=== PATIENT | male | born 1945 | race Caucasian/White ===

== ENCOUNTER → 2018-07-06 | Outpatient (CLI) | payer MEDICARE, BC ==
[~2018-07-06] MED LIST: ASPI-515 PO; BUPR300T4 PO; IPRA4AER INH; LATA2.5D3 EACHEYE; OMEP-110 PO; SIMV80TA18 PO; TIOT18CA INH; VALS160T3 PO
== END | disposition home or self-care (01) ==
LOC: SUSANVILLE 08:00
PROVIDERS: ATTEND Internal Medicine Cardiovascular Disease
DX: I08.1 Rheumatic disorders of both mitral and tricuspid valves (principal); I10 Essential (primary) hypertension; J44.9 Chronic obstructive pulmonary disease, unspecified; E78.5 Hyperlipidemia, unspecified
CPT/HCPCS: 93306

== ENCOUNTER → 2019-10-13 | Outpatient (CLI) | payer MEDICARE, BC ==
[~2019-10-13] MED LIST changes: -BUPR300T4 PO; +BUPR300T94 PO
[2019-10-13 08:33] LABS: ALANINE AMINOTRANSFERASE 35 U/L (12-78); ANION GAP 3 mmol/L (5-15); CALCIUM 8.5 mg/dL (8.5-10.1); CHLORIDE 112 mmol/L (98-107); CHOLESTEROL, TOTAL 202 mg/dL (140-239)
[2019-10-13 08:35] LABS: ALKALINE PHOSPHATASE 104 U/L (45-117); BILIRUBIN,TOTAL 0.3 mg/dL (0.2-1.0); CHOL/HDL RATIO 1.8; HDL CHOL % 55 % (26-37); HDL CHOLESTEROL (DIRECT) 111 mg/dL (40-60); LDL CHOLESTEROL,CALCULATED 54 mg/dL (54-169); LDL/HDL RATIO 0.5 (0.5-3.0); TRIGLYCERIDES 186 mg/dL (50-200); VLDL CHOLESTEROL 37 mg/dL (0-25)
== END | disposition home or self-care (01) ==
LOC: CVU 07:21
PROVIDERS: ATTEND Internal Medicine Cardiovascular Disease
DX: I35.8 Other nonrheumatic aortic valve disorders (principal); I10 Essential (primary) hypertension; I48.91 Unspecified atrial fibrillation; R06.02 Shortness of breath; E78.5 Hyperlipidemia, unspecified
CPT/HCPCS: 36415; 80053; 80061; 93306

== ENCOUNTER 2020-10-31 21:41 | Inpatient (IN) | payer MEDICARE, BC ==
[~2020-10-31] VITALS: Ht 175.3 cm; Wt 71.5 kg
[~2020-10-31 21:41] MED LIST changes: -ASPI-515 PO; +ASPI-963 PO; -LATA2.5D3 EACHEYE; +LATA2.5D4 EACHEYE
[2020-11-01 00:09] VITALS: BP 126/74
[2020-11-01] MEDS ORDERED: VANCOMYCIN 1,200 MG in SODIUM CHLORIDE 0.9% 250 ML IVPB SCH (03:16)
[2020-11-01] MEDS ORDERED: ONDANSETRON 2MG/ML, 2ML IVPush PRN (03:30)
[2020-11-01] MEDS ORDERED: hydrALAzine 20 MG/ML, 1ML IVPush PRN (03:30)
[2020-11-01] MEDS ORDERED: morphine SULFATE 10 MG/ML, 1ML IVPush PRN (03:30)
[2020-11-01] MEDS: GUAIFENESIN/DM 200-20MG, 10ML UDC PO PRN ×2 (03:32→16:13)
[2020-11-01] MEDS: HEPARIN 5,000 UNITS/ML, 1ML SQ SCH ×3 (03:33→21:11)
[2020-11-01] MEDS ORDERED: VANCOMYCIN PER PHARMACY MC PRN (04:00)
[2020-11-01] MEDS ORDERED: PHARMACOKINETIC MONITORING MC PRN (04:00)
[2020-11-01] MEDS ORDERED: VANCOMYCIN 1,700 MG in SODIUM CHLORIDE 0.9% 250 ML IV ONE (04:00)
[2020-11-01] MEDS: CEFEPIME 1 GM in DEXTROSE 5% 50 ML IV SCH ×2 (04:14→16:14)
[2020-11-01] MEDS ORDERED: ALBUTEROL/IPRATROPIUM 2.5MG/0.5MG, 3 ML NPPB PRN (04:30)
[2020-11-01] MEDS ORDERED: ATOR20TA86 PO (05:40)
[2020-11-01] MEDS ORDERED: METO25TA91 PO (05:41)
[2020-11-01] MEDS ORDERED: APIX2.5T PO (05:41)
[2020-11-01] MEDS ORDERED: ALLO1POW PO (05:44)
[2020-11-01] MEDS: ALBUTEROL/IPRATROPIUM 2.5MG/0.5MG, 3 ML HHN SCH ×2 (06:51→19:55)
[2020-11-01 07:05] VITALS: BP 122/66
[2020-11-01 08:46] LABS: BASOPHILS % (AUTO) 0 % (0-1); EOSINOPHILS % (AUTO) 1 % (1-7); LYMPHOCYTES % (AUTO) 3 % (22-44); MEAN CORPUSCULAR HEMOGLOBIN 30.8 pg (27.5-34.5); MEAN CORPUSCULAR HGB CONC 32.9 g/dL (33.2-36.2); MONOCYTES % (AUTO) 7 % (2-9); NEUTROPHILS % (AUTO) 89 % (42-75); PLATELET COUNT 167 x10^3/uL (130-400); RED BLOOD COUNT 3.06 x10^6/uL (4.38-5.82); RED CELL DISTRIBUTION WIDTH 15.9 % (9.4-14.8)
[2020-11-01 08:52] LABS: ANION GAP 7 mmol/L (5-15); CALCIUM 8.5 mg/dL (8.5-10.1); CHLORIDE 107 mmol/L (98-107); CREATININE 1.32 mg/dL (0.7-1.3)
[2020-11-01 08:56] LABS: TROPONIN I < 0.015 ng/mL (0.000-0.045)
[2020-11-01] MEDS ORDERED: ALBUMIN HUMAN 25% 100 ML IV ONE (09:00)
[2020-11-01] MEDS ORDERED: ATORVASTATIN 20 MG TABLET PO ONE (09:30)
[2020-11-01] MEDS: OMEPRAZOLE 20 MG CAPSULE.DR PO SCH (09:57)
[2020-11-01] MEDS: METOPROLOL SUCCINATE 25 MG TAB.ER.24H PO SCH ×2 (09:57→21:11)
[2020-11-01 12:34] VITALS: BP 135/86
[2020-11-01 14:06] VITALS: BP 147/92
[2020-11-01] MEDS ORDERED: AMIODARONE 150 MG in DEXTROSE 5% 100 ML IV ONE (16:00)
[2020-11-01] MEDS: FILTER 0.22 MICRON IV PRN (16:14)
[2020-11-01] MEDS: OXYcodone/APAP 5/325MG TABLET PO PRN (16:14)
[2020-11-01] MEDS: AMIODARONE 450 MG in DEXTROSE 5% 241 ML IV PRN (16:14)
[2020-11-01 18:51] VITALS: BP 140/82
[2020-11-01] MEDS: LATANOPROST OPHTH 0.005%, 2.5ML EACHEYE SCH (21:11)
[2020-11-02 00:24] VITALS: BP 110/57
[2020-11-02] MEDS: AMIODARONE 450 MG in DEXTROSE 5% 241 ML IV PRN ×2 (01:58→19:29)
[2020-11-02] MEDS: HEPARIN 5,000 UNITS/ML, 1ML SQ SCH ×2 (03:30→11:30)
[2020-11-02] MEDS: CEFEPIME 1 GM in DEXTROSE 5% 50 ML IV SCH ×2 (04:22→15:41)
[2020-11-02 05:15] LABS: ALBUMIN 2.4 g/dL (3.4-5.0); ANION GAP 8 mmol/L (5-15); CALCIUM 8.9 mg/dL (8.5-10.1); CHLORIDE 109 mmol/L (98-107)
[2020-11-02 05:20] LABS: ALANINE AMINOTRANSFERASE 13 U/L (12-78); ALKALINE PHOSPHATASE 93 U/L (45-117); BILIRUBIN,TOTAL 0.9 mg/dL (0.2-1.0); CREATININE 1.04 mg/dL (0.7-1.3); TOTAL PROTEIN 6.3 g/dL (6.4-8.2)
[2020-11-02 06:53] VITALS: BP 148/75
[2020-11-02] MEDS: OMEPRAZOLE 20 MG CAPSULE.DR PO SCH (09:00)
[2020-11-02] MEDS: METOPROLOL SUCCINATE 25 MG TAB.ER.24H PO SCH ×2 (09:00→20:56)
[2020-11-02] MEDS ORDERED: ALBUTEROL-IPRATROPIUM MDI INH INH SCH (09:00)
[2020-11-02] MEDS ORDERED: MIDAZOLAM 1 MG/ML, 5ML ONE ×2 (11:10)
[2020-11-02] MEDS ORDERED: FENTANYL PF 100 MCG/2ML ONE (11:11)
[2020-11-02] MEDS ORDERED: LIDOCAINE 1%, 10ML ONE (11:42)
[2020-11-02] MEDS ORDERED: FLUMAZENIL 0.1 MG/1 ML, 5ML ONE (12:24)
[2020-11-02] MEDS: VANCOMYCIN 1,600 MG in SODIUM CHLORIDE 0.9% 250 ML IV SCH (13:03)
[2020-11-02 13:05] VITALS: BP 155/80
[2020-11-02] MEDS ORDERED: LIDOCAINE GEL 2%, 5ML ONE (13:55)
[2020-11-02] MEDS ORDERED: LIDOCAINE 2%, 20ML ONE (13:55)
[2020-11-02] MEDS ORDERED: BENZOCAINE 20% SPRAY 0.5ML ONE (13:55)
[2020-11-02] MEDS ORDERED: methylPREDNISolone SOD SUCC 40 MG/ML ONE (15:54)
[2020-11-02] MEDS: methylPREDNISolone SOD SUCC 40 MG/ML IV SCH (15:57)
[2020-11-02] MEDS: GUAIFENESIN/DM 200-20MG, 10ML UDC PO PRN (15:57)
[2020-11-02] MEDS: ALBUTEROL-IPRATROPIUM MDI INH INH SCH ×2 (17:23→20:56)
[2020-11-02] MEDS: OXYcodone/APAP 5/325MG TABLET PO PRN (19:39)
[2020-11-02] MEDS: LATANOPROST OPHTH 0.005%, 2.5ML EACHEYE SCH (20:56)
[2020-11-02] MEDS: MELATONIN 5 MG TABLET PO PRN (21:04)
[2020-11-03] MEDS: methylPREDNISolone SOD SUCC 40 MG/ML IV SCH ×4 (00:20→23:39)
[2020-11-03] MEDS: AMIODARONE 450 MG in DEXTROSE 5% 241 ML IV PRN ×3 (03:22→21:32)
[2020-11-03] MEDS: CEFEPIME 1 GM in DEXTROSE 5% 50 ML IV SCH ×2 (03:22→15:52)
[2020-11-03] MEDS: ALBUTEROL-IPRATROPIUM MDI INH INH SCH ×4 (06:06→20:07)
[2020-11-03 08:00] VITALS: BP 140/75
[2020-11-03 08:44] LABS: BASOPHILS % (AUTO) 0 % (0-1); EOSINOPHILS % (AUTO) 0 % (1-7); LYMPHOCYTES % (AUTO) 2 % (22-44); MEAN CORPUSCULAR HEMOGLOBIN 30.3 pg (27.5-34.5); MEAN CORPUSCULAR HGB CONC 32.5 g/dL (33.2-36.2); MEAN PLATELET VOLUME 7.4 fL (7.4-10.4); MONOCYTES % (AUTO) 5 % (2-9); NEUTROPHILS % (AUTO) 93 % (42-75); PLATELET COUNT 159 x10^3/uL (130-400); RED BLOOD COUNT 3.34 x10^6/uL (4.38-5.82); RED CELL DISTRIBUTION WIDTH 15.9 % (9.4-14.8)
[2020-11-03] MEDS: METOPROLOL SUCCINATE 25 MG TAB.ER.24H PO SCH ×2 (08:51→20:07)
[2020-11-03] MEDS: OMEPRAZOLE 20 MG CAPSULE.DR PO SCH (08:51)
[2020-11-03] MEDS: LISINOPRIL 10 MG TABLET PO SCH ×2 (08:52→20:07)
[2020-11-03] MEDS: GUAIFENESIN/DM 200-20MG, 10ML UDC PO PRN (08:52)
[2020-11-03 08:54] LABS: ALANINE AMINOTRANSFERASE 13 U/L (12-78); ALBUMIN 2.3 g/dL (3.4-5.0); ANION GAP 8 mmol/L (5-15); CALCIUM 8.9 mg/dL (8.5-10.1); CHLORIDE 110 mmol/L (98-107); CREATININE 0.87 mg/dL (0.7-1.3)
[2020-11-03 08:57] LABS: ALKALINE PHOSPHATASE 102 U/L (45-117); BILIRUBIN,TOTAL 0.6 mg/dL (0.2-1.0); TOTAL PROTEIN 6.7 g/dL (6.4-8.2)
[2020-11-03] MEDS ORDERED: APIXABAN 2.5 MG TABLET PO SCH (09:00)
[2020-11-03] MEDS: VANCOMYCIN 1,600 MG in SODIUM CHLORIDE 0.9% 250 ML IV SCH (11:33)
[2020-11-03] MEDS: APIXABAN 2.5 MG TABLET PO SCH (20:07)
[2020-11-03] MEDS: LATANOPROST OPHTH 0.005%, 2.5ML EACHEYE SCH (20:07)
[2020-11-03] MEDS: MELATONIN 5 MG TABLET PO PRN (22:06)
[2020-11-04] MEDS: CEFEPIME 1 GM in DEXTROSE 5% 50 ML IV SCH ×2 (02:41→16:10)
[2020-11-04] MEDS: FILTER 0.22 MICRON IV PRN (06:12)
[2020-11-04] MEDS: AMIODARONE 450 MG in DEXTROSE 5% 241 ML IV PRN ×3 (06:12→20:11)
[2020-11-04] MEDS: ALBUTEROL-IPRATROPIUM MDI INH INH SCH ×4 (06:13→21:52)
[2020-11-04] MEDS: methylPREDNISolone SOD SUCC 40 MG/ML IV SCH ×2 (08:55→16:10)
[2020-11-04] MEDS: OMEPRAZOLE 20 MG CAPSULE.DR PO SCH (08:56)
[2020-11-04] MEDS: METOPROLOL SUCCINATE 25 MG TAB.ER.24H PO SCH ×2 (08:56→21:53)
[2020-11-04] MEDS: LISINOPRIL 10 MG TABLET PO SCH ×2 (08:57→21:53)
[2020-11-04] MEDS: APIXABAN 2.5 MG TABLET PO SCH ×2 (08:57→21:53)
[2020-11-04] MEDS: VANCOMYCIN 1,600 MG in SODIUM CHLORIDE 0.9% 250 ML IV SCH (10:42)
[2020-11-04] MEDS: GUAIFENESIN/DM 200-20MG, 10ML UDC PO PRN (11:17)
[2020-11-04] MEDS: DRONABINOL 5 MG CAPSULE PO SCH ×2 (16:20→21:53)
[2020-11-04] MEDS ORDERED: AMIODARONE 450 MG in DEXTROSE 5% 241 ML IV PRN (19:30)
[2020-11-04] MEDS: LATANOPROST OPHTH 0.005%, 2.5ML EACHEYE SCH (21:51)
[2020-11-05] MEDS: methylPREDNISolone SOD SUCC 40 MG/ML IV SCH ×3 (00:26→20:54)
[2020-11-05] MEDS: AMIODARONE 450 MG in DEXTROSE 5% 241 ML IV PRN (00:27)
[2020-11-05] MEDS: GUAIFENESIN/DM 200-20MG, 10ML UDC PO PRN ×4 (03:57→22:11)
[2020-11-05] MEDS: CEFEPIME 1 GM in DEXTROSE 5% 50 ML IV SCH ×2 (03:57→15:33)
[2020-11-05 04:46] LABS: BASOPHILS % (AUTO) 0 % (0-1); EOSINOPHILS % (AUTO) 0 % (1-7); LYMPHOCYTES % (AUTO) 3 % (22-44); MEAN CORPUSCULAR HEMOGLOBIN 30.9 pg (27.5-34.5); MEAN CORPUSCULAR HGB CONC 33.1 g/dL (33.2-36.2); MEAN PLATELET VOLUME 7.9 fL (7.4-10.4); MONOCYTES % (AUTO) 8 % (2-9); NEUTROPHILS % (AUTO) 89 % (42-75); PLATELET COUNT 146 x10^3/uL (130-400); RED BLOOD COUNT 3.09 x10^6/uL (4.38-5.82); RED CELL DISTRIBUTION WIDTH 16.3 % (9.4-14.8)
[2020-11-05 04:54] LABS: ANION GAP 4 mmol/L (5-15); CALCIUM 8.3 mg/dL (8.5-10.1); CHLORIDE 112 mmol/L (98-107); CREATININE 1.12 mg/dL (0.7-1.3)
[2020-11-05] MEDS: ALBUTEROL-IPRATROPIUM MDI INH INH SCH ×4 (07:49→20:54)
[2020-11-05] MEDS: METOPROLOL SUCCINATE 25 MG TAB.ER.24H PO SCH ×2 (07:50→20:55)
[2020-11-05] MEDS: DRONABINOL 5 MG CAPSULE PO SCH ×2 (07:50→22:08)
[2020-11-05] MEDS: APIXABAN 2.5 MG TABLET PO SCH (07:51)
[2020-11-05] MEDS: LISINOPRIL 10 MG TABLET PO SCH ×2 (07:51→20:55)
[2020-11-05] MEDS: OMEPRAZOLE 20 MG CAPSULE.DR PO SCH (07:51)
[2020-11-05] MEDS: VANCOMYCIN 1,600 MG in SODIUM CHLORIDE 0.9% 250 ML IV SCH (10:07)
[2020-11-05] MEDS ORDERED: FENTANYL PF 100 MCG/2ML ONE (12:00)
[2020-11-05] MEDS ORDERED: MIDAZOLAM 1 MG/ML, 5ML ONE (12:00)
[2020-11-05] MEDS ORDERED: FENTANYL PF 100 MCG/2ML IVPush ONE (12:53)
[2020-11-05] MEDS ORDERED: MIDAZOLAM 1 MG/ML, 2ML IVPush ONE (12:53)
[2020-11-05] MEDS ORDERED: ALBUTEROL-IPRATROPIUM MDI INH INH PRN (13:00)
[2020-11-05] MEDS: AMIODARONE 200 MG TABLET PO SCH ×2 (14:13→20:54)
[2020-11-05 17:59] VITALS: BP 129/78
[2020-11-05] MEDS: LATANOPROST OPHTH 0.005%, 2.5ML EACHEYE SCH (20:54)
[2020-11-05] MEDS: APIXABAN 5 MG TABLET PO SCH (21:00)
[2020-11-06 03:33] VITALS: BP 149/81
[2020-11-06] MEDS: GUAIFENESIN/DM 200-20MG, 10ML UDC PO PRN ×3 (04:05→18:42)
[2020-11-06] MEDS: CEFEPIME 1 GM in DEXTROSE 5% 50 ML IV SCH ×2 (04:05→15:59)
[2020-11-06] MEDS: ALBUTEROL-IPRATROPIUM MDI INH INH SCH ×4 (05:14→20:32)
[2020-11-06 06:34] LABS: BASOPHILS % (AUTO) 0 % (0-1); EOSINOPHILS % (AUTO) 0 % (1-7); LYMPHOCYTES % (AUTO) 2 % (22-44); MEAN CORPUSCULAR HGB CONC 33.1 g/dL (33.2-36.2); MEAN PLATELET VOLUME 8.4 fL (7.4-10.4); MONOCYTES % (AUTO) 9 % (2-9); NEUTROPHILS % (AUTO) 88 % (42-75); PLATELET COUNT 154 x10^3/uL (130-400); RED BLOOD COUNT 3.07 x10^6/uL (4.38-5.82); RED CELL DISTRIBUTION WIDTH 16.5 % (9.4-14.8)
[2020-11-06 06:37] LABS: CHLORIDE 109 mmol/L (98-107)
[2020-11-06 06:54] LABS: ANION GAP 5 mmol/L (5-15); CALCIUM 8.2 mg/dL (8.5-10.1); CREATININE 1.29 mg/dL (0.7-1.3)
[2020-11-06 09:02] VITALS: BP 156/90
[2020-11-06] MEDS: DRONABINOL 5 MG CAPSULE PO SCH ×2 (09:15→20:31)
[2020-11-06] MEDS: methylPREDNISolone SOD SUCC 40 MG/ML IV SCH ×2 (09:15→20:32)
[2020-11-06] MEDS: LISINOPRIL 10 MG TABLET PO SCH ×2 (09:15→20:31)
[2020-11-06] MEDS: METOPROLOL SUCCINATE 25 MG TAB.ER.24H PO SCH ×2 (09:15→20:31)
[2020-11-06] MEDS: APIXABAN 5 MG TABLET PO SCH ×2 (09:15→20:31)
[2020-11-06] MEDS: AMIODARONE 200 MG TABLET PO SCH ×2 (09:15→20:31)
[2020-11-06] MEDS: OMEPRAZOLE 20 MG CAPSULE.DR PO SCH (09:23)
[2020-11-06 13:25] VITALS: BP 149/81
[2020-11-06 19:11] VITALS: BP 159/84
[2020-11-06] MEDS: LATANOPROST OPHTH 0.005%, 2.5ML EACHEYE SCH (20:32)
[2020-11-07] MEDS: GUAIFENESIN/DM 200-20MG, 10ML UDC PO PRN ×3 (01:27→18:45)
[2020-11-07 02:14] VITALS: BP 166/89
[2020-11-07] MEDS: CEFEPIME 1 GM in DEXTROSE 5% 50 ML IV SCH ×2 (03:18→16:02)
[2020-11-07] MEDS: ALBUTEROL-IPRATROPIUM MDI INH INH SCH ×4 (06:24→20:26)
[2020-11-07] MEDS: DRONABINOL 5 MG CAPSULE PO SCH ×2 (08:16→20:25)
[2020-11-07] MEDS: OMEPRAZOLE 20 MG CAPSULE.DR PO SCH (08:16)
[2020-11-07] MEDS: APIXABAN 5 MG TABLET PO SCH ×2 (08:17→20:25)
[2020-11-07] MEDS: AMIODARONE 200 MG TABLET PO SCH ×2 (08:18→20:26)
[2020-11-07] MEDS: METOPROLOL SUCCINATE 25 MG TAB.ER.24H PO SCH ×2 (08:19→20:25)
[2020-11-07] MEDS: LISINOPRIL 10 MG TABLET PO SCH ×2 (08:19→20:26)
[2020-11-07] MEDS: methylPREDNISolone SOD SUCC 40 MG/ML IV SCH (08:21)
[2020-11-07 14:04] VITALS: BP 142/82
[2020-11-07] MEDS ORDERED: VANCOMYCIN 1,400 MG in SODIUM CHLORIDE 0.9% 250 ML IV ONE (16:00)
[2020-11-07] MEDS: MELATONIN 5 MG TABLET PO PRN (20:26)
[2020-11-07] MEDS: LATANOPROST OPHTH 0.005%, 2.5ML EACHEYE SCH (20:26)
[2020-11-07 20:27] VITALS: BP 167/82
[2020-11-08 00:40] VITALS: BP 162/83
[2020-11-08] MEDS: CEFEPIME 1 GM in DEXTROSE 5% 50 ML IV SCH ×2 (03:30→15:18)
[2020-11-08] MEDS: ALBUTEROL-IPRATROPIUM MDI INH INH SCH ×4 (06:16→20:12)
[2020-11-08 06:59] VITALS: BP 174/84
[2020-11-08] MEDS ORDERED: POLYETHYLENE GLYCOL 17 GM PACKET NG PRN (08:30)
[2020-11-08] MEDS: SENNA/DOCUSATE TABLET PO SCH (08:34)
[2020-11-08] MEDS: METOPROLOL SUCCINATE 25 MG TAB.ER.24H PO SCH ×2 (08:35→20:13)
[2020-11-08] MEDS: AMIODARONE 200 MG TABLET PO SCH ×2 (08:35→20:12)
[2020-11-08] MEDS: OMEPRAZOLE 20 MG CAPSULE.DR PO SCH (08:36)
[2020-11-08] MEDS: APIXABAN 5 MG TABLET PO SCH ×2 (08:36→20:12)
[2020-11-08] MEDS: LISINOPRIL 10 MG TABLET PO SCH ×2 (08:36→20:12)
[2020-11-08] MEDS: DRONABINOL 5 MG CAPSULE PO SCH ×2 (08:36→20:12)
[2020-11-08] MEDS: GUAIFENESIN/DM 200-20MG, 10ML UDC PO PRN ×2 (12:16→20:13)
[2020-11-08] MEDS: OXYcodone/APAP 5/325MG TABLET PO PRN (12:16)
[2020-11-08 13:29] VITALS: BP 135/61
[2020-11-08 19:14] VITALS: BP 160/83
[2020-11-08] MEDS: MELATONIN 5 MG TABLET PO PRN (20:12)
[2020-11-08] MEDS: LATANOPROST OPHTH 0.005%, 2.5ML EACHEYE SCH (20:12)
[2020-11-09 00:33] VITALS: BP 159/78
[2020-11-09] MEDS: CEFEPIME 1 GM in DEXTROSE 5% 50 ML IV SCH ×2 (03:40→17:21)
[2020-11-09] MEDS: ALBUTEROL-IPRATROPIUM MDI INH INH SCH ×4 (05:16→20:46)
[2020-11-09 05:57] LABS: BASOPHILS % (AUTO) 1 % (0-1); EOSINOPHILS % (AUTO) 0 % (1-7); LYMPHOCYTES % (AUTO) 6 % (22-44); MEAN CORPUSCULAR HEMOGLOBIN 31.1 pg (27.5-34.5); MEAN CORPUSCULAR HGB CONC 33.4 g/dL (33.2-36.2); MEAN PLATELET VOLUME 8.3 fL (7.4-10.4); MONOCYTES % (AUTO) 7 % (2-9); NEUTROPHILS % (AUTO) 86 % (42-75); PLATELET COUNT 172 x10^3/uL (130-400); RED CELL DISTRIBUTION WIDTH 16.7 % (9.4-14.8)
[2020-11-09 06:08] LABS: CALCIUM 7.9 mg/dL (8.5-10.1); CHLORIDE 109 mmol/L (98-107)
[2020-11-09 06:12] LABS: ALBUMIN 1.9 g/dL (3.4-5.0); ANION GAP 0 mmol/L (5-15)
[2020-11-09 06:19] LABS: ALKALINE PHOSPHATASE 74 U/L (45-117); BILIRUBIN,TOTAL 0.4 mg/dL (0.2-1.0); TOTAL PROTEIN 5.4 g/dL (6.4-8.2)
[2020-11-09 06:25] LABS: ALANINE AMINOTRANSFERASE 13 U/L (12-78); CREATININE 0.96 mg/dL (0.7-1.3)
[2020-11-09 06:26] LABS: VANCOMYCIN,RANDOM 16.4 mcg/mL
[2020-11-09] MEDS ORDERED: POLYETHYLENE GLYCOL 17 GM PACKET NG ONE (08:30)
[2020-11-09 10:00] VITALS: BP 160/78
[2020-11-09] MEDS ORDERED: VANCOMYCIN 1,600 MG in SODIUM CHLORIDE 0.9% 250 ML IV ONE (10:00)
[2020-11-09] MEDS: APIXABAN 5 MG TABLET PO SCH ×2 (10:18→20:49)
[2020-11-09] MEDS: SENNA/DOCUSATE TABLET PO SCH (10:18)
[2020-11-09] MEDS: METOPROLOL SUCCINATE 25 MG TAB.ER.24H PO SCH ×2 (10:19→20:50)
[2020-11-09] MEDS: AMIODARONE 200 MG TABLET PO SCH ×2 (10:19→20:49)
[2020-11-09] MEDS: OMEPRAZOLE 20 MG CAPSULE.DR PO SCH (10:19)
[2020-11-09] MEDS: LISINOPRIL 10 MG TABLET PO SCH (10:20)
[2020-11-09] MEDS: DRONABINOL 5 MG CAPSULE PO SCH ×2 (10:20→20:49)
[2020-11-09] MEDS: GUAIFENESIN/DM 200-20MG, 10ML UDC PO PRN (14:03)
[2020-11-09 15:17] VITALS: BP 105/68
[2020-11-09 19:53] VITALS: BP 150/84
[2020-11-09] MEDS: LATANOPROST OPHTH 0.005%, 2.5ML EACHEYE SCH (20:48)
[2020-11-09] MEDS: LISINOPRIL 20 MG TABLET PO SCH (20:49)
[2020-11-10 02:34] VITALS: BP 146/77
[2020-11-10] MEDS: CEFEPIME 1 GM in DEXTROSE 5% 50 ML IV SCH ×2 (04:19→16:01)
[2020-11-10 05:50] LABS: BASOPHILS % (AUTO) 0 % (0-1); EOSINOPHILS % (AUTO) 0 % (1-7); LYMPHOCYTES % (AUTO) 4 % (22-44); MEAN CORPUSCULAR HEMOGLOBIN 31.1 pg (27.5-34.5); MEAN CORPUSCULAR HGB CONC 33.3 g/dL (33.2-36.2); MEAN PLATELET VOLUME 8.6 fL (7.4-10.4); MONOCYTES % (AUTO) 7 % (2-9); NEUTROPHILS % (AUTO) 89 % (42-75); PLATELET COUNT 176 x10^3/uL (130-400); RED BLOOD COUNT 3.28 x10^6/uL (4.38-5.82); RED CELL DISTRIBUTION WIDTH 16.4 % (9.4-14.8)
[2020-11-10] MEDS: ALBUTEROL-IPRATROPIUM MDI INH INH SCH ×4 (05:55→21:07)
[2020-11-10 06:12] LABS: ANION GAP 5 mmol/L (5-15); CHLORIDE 108 mmol/L (98-107)
[2020-11-10 06:19] LABS: ALANINE AMINOTRANSFERASE 12 U/L (12-78); ALKALINE PHOSPHATASE 71 U/L (45-117); BILIRUBIN,TOTAL 0.6 mg/dL (0.2-1.0); CALCIUM 8.3 mg/dL (8.5-10.1); CREATININE 0.91 mg/dL (0.7-1.3); TOTAL PROTEIN 5.2 g/dL (6.4-8.2)
[2020-11-10 08:28] VITALS: BP 161/78
[2020-11-10] MEDS: SENNA/DOCUSATE TABLET PO SCH (09:00)
[2020-11-10] MEDS: OMEPRAZOLE 20 MG CAPSULE.DR PO SCH (10:05)
[2020-11-10] MEDS: METOPROLOL SUCCINATE 25 MG TAB.ER.24H PO SCH ×2 (10:05→21:06)
[2020-11-10] MEDS: DRONABINOL 5 MG CAPSULE PO SCH ×2 (10:06→21:06)
[2020-11-10] MEDS: APIXABAN 5 MG TABLET PO SCH ×2 (10:06→21:06)
[2020-11-10] MEDS: AMIODARONE 200 MG TABLET PO SCH ×2 (10:06→21:07)
[2020-11-10] MEDS: LISINOPRIL 20 MG TABLET PO SCH ×2 (10:06→21:08)
[2020-11-10] MEDS: GUAIFENESIN/DM 200-20MG, 10ML UDC PO PRN ×2 (10:07→21:05)
[2020-11-10 14:00] VITALS: BP 99/63
[2020-11-10 20:13] VITALS: BP_SYST 107; BP_SYST 122; BP_DIAS 72
[2020-11-10] MEDS: MELATONIN 5 MG TABLET PO PRN (21:06)
[2020-11-10] MEDS: LATANOPROST OPHTH 0.005%, 2.5ML EACHEYE SCH (21:07)
[2020-11-11 00:49] VITALS: BP 122/67
[2020-11-11] MEDS: CEFEPIME 1 GM in DEXTROSE 5% 50 ML IV SCH ×2 (03:57→15:36)
[2020-11-11] MEDS: ALBUTEROL-IPRATROPIUM MDI INH INH SCH ×4 (05:12→20:33)
[2020-11-11 06:20] LABS: BASOPHILS % (AUTO) 0 % (0-1); EOSINOPHILS % (AUTO) 0 % (1-7); LYMPHOCYTES % (AUTO) 6 % (22-44); MEAN CORPUSCULAR HGB CONC 33.5 g/dL (33.2-36.2); MEAN PLATELET VOLUME 8.9 fL (7.4-10.4); MONOCYTES % (AUTO) 9 % (2-9); NEUTROPHILS % (AUTO) 85 % (42-75); PLATELET COUNT 163 x10^3/uL (130-400); RED BLOOD COUNT 3.13 x10^6/uL (4.38-5.82); RED CELL DISTRIBUTION WIDTH 16.3 % (9.4-14.8)
[2020-11-11 06:24] LABS: CHLORIDE 108 mmol/L (98-107)
[2020-11-11 06:32] LABS: ALANINE AMINOTRANSFERASE 13 U/L (12-78); ALBUMIN 1.7 g/dL (3.4-5.0); ALKALINE PHOSPHATASE 66 U/L (45-117); ANION GAP 3 mmol/L (5-15); BILIRUBIN,TOTAL 0.5 mg/dL (0.2-1.0); CALCIUM 7.8 mg/dL (8.5-10.1); CREATININE 1.07 mg/dL (0.7-1.3); VANCOMYCIN,TROUGH 16.5 mcg/mL (5.0-10.0)
[2020-11-11 08:42] VITALS: BP 146/79
[2020-11-11] MEDS: DRONABINOL 5 MG CAPSULE PO SCH ×2 (10:15→20:34)
[2020-11-11] MEDS: OMEPRAZOLE 20 MG CAPSULE.DR PO SCH (10:15)
[2020-11-11] MEDS: APIXABAN 5 MG TABLET PO SCH ×2 (10:15→20:34)
[2020-11-11] MEDS: METOPROLOL SUCCINATE 25 MG TAB.ER.24H PO SCH ×2 (10:16→20:34)
[2020-11-11] MEDS: LISINOPRIL 20 MG TABLET PO SCH ×2 (10:16→20:35)
[2020-11-11] MEDS: SENNA/DOCUSATE TABLET PO SCH (10:16)
[2020-11-11] MEDS: AMIODARONE 200 MG TABLET PO SCH ×2 (10:16→20:34)
[2020-11-11] MEDS ORDERED: VANCOMYCIN 1,600 MG in SODIUM CHLORIDE 0.9% 250 ML IV ONE (11:30)
[2020-11-11 14:32] VITALS: BP 106/65
[2020-11-11] MEDS: BUPROPION SR 150 MG TABLET PO SCH ×2 (17:24→20:05)
[2020-11-11] MEDS: LATANOPROST OPHTH 0.005%, 2.5ML EACHEYE SCH (20:32)
[2020-11-11] MEDS: MELATONIN 5 MG TABLET PO PRN (20:34)
[2020-11-11 20:37] VITALS: BP 143/80
[2020-11-11] MEDS: GUAIFENESIN/DM 200-20MG, 10ML UDC PO PRN (22:02)
[2020-11-12 02:10] VITALS: BP 162/80
[2020-11-12] MEDS: CEFEPIME 1 GM in DEXTROSE 5% 50 ML IV SCH ×2 (03:01→15:47)
[2020-11-12] MEDS: ALBUTEROL-IPRATROPIUM MDI INH INH SCH ×4 (06:08→20:25)
[2020-11-12 09:09] VITALS: BP 158/80
[2020-11-12] MEDS: OMEPRAZOLE 20 MG CAPSULE.DR PO SCH (09:20)
[2020-11-12] MEDS: APIXABAN 5 MG TABLET PO SCH ×2 (09:20→20:24)
[2020-11-12] MEDS: SENNA/DOCUSATE TABLET PO SCH (09:20)
[2020-11-12] MEDS: METOPROLOL SUCCINATE 25 MG TAB.ER.24H PO SCH ×2 (09:20→20:24)
[2020-11-12] MEDS: DRONABINOL 5 MG CAPSULE PO SCH ×2 (09:20→20:23)
[2020-11-12] MEDS: BUPROPION SR 150 MG TABLET PO SCH ×2 (09:20→20:24)
[2020-11-12] MEDS: LISINOPRIL 20 MG TABLET PO SCH ×2 (09:20→20:24)
[2020-11-12] MEDS: AMIODARONE 200 MG TABLET PO SCH ×2 (09:21→20:24)
[2020-11-12 12:35] VITALS: BP 123/69
[2020-11-12] MEDS: GUAIFENESIN/DM 200-20MG, 10ML UDC PO PRN (16:08)
[2020-11-12 18:23] VITALS: BP 151/75
[2020-11-12] MEDS: MELATONIN 5 MG TABLET PO PRN (20:23)
[2020-11-12] MEDS: LATANOPROST OPHTH 0.005%, 2.5ML EACHEYE SCH (20:24)
[2020-11-13 00:41] VITALS: BP 146/78
[2020-11-13] MEDS: CEFEPIME 1 GM in DEXTROSE 5% 50 ML IV SCH ×2 (03:53→15:30)
[2020-11-13] MEDS: ALBUTEROL-IPRATROPIUM MDI INH INH SCH ×4 (05:48→19:55)
[2020-11-13 06:00] LABS: BASOPHILS % (AUTO) 0 % (0-1); EOSINOPHILS % (AUTO) 0 % (1-7); LYMPHOCYTES % (AUTO) 8 % (22-44); MEAN CORPUSCULAR HEMOGLOBIN 30.7 pg (27.5-34.5); MEAN CORPUSCULAR HGB CONC 33.1 g/dL (33.2-36.2); MEAN PLATELET VOLUME 8.7 fL (7.4-10.4); MONOCYTES % (AUTO) 10 % (2-9); NEUTROPHILS % (AUTO) 82 % (42-75); PLATELET COUNT 184 x10^3/uL (130-400); RED BLOOD COUNT 3.18 x10^6/uL (4.38-5.82); RED CELL DISTRIBUTION WIDTH 16.2 % (9.4-14.8)
[2020-11-13 06:07] LABS: ANION GAP 5 mmol/L (5-15); CALCIUM 7.5 mg/dL (8.5-10.1); CHLORIDE 105 mmol/L (98-107)
[2020-11-13 06:11] LABS: CREATININE 0.98 mg/dL (0.7-1.3); VANCOMYCIN,RANDOM 14.2 mcg/mL
[2020-11-13 08:18] VITALS: BP 143/80
[2020-11-13] MEDS: AMIODARONE 200 MG TABLET PO SCH ×2 (08:21→19:54)
[2020-11-13] MEDS: LISINOPRIL 20 MG TABLET PO SCH ×2 (08:21→19:54)
[2020-11-13] MEDS: METOPROLOL SUCCINATE 25 MG TAB.ER.24H PO SCH ×2 (08:21→19:54)
[2020-11-13] MEDS: DRONABINOL 5 MG CAPSULE PO SCH ×2 (08:21→19:54)
[2020-11-13] MEDS: APIXABAN 5 MG TABLET PO SCH ×2 (08:21→19:54)
[2020-11-13] MEDS: SENNA/DOCUSATE TABLET PO SCH (08:21)
[2020-11-13] MEDS: BUPROPION SR 150 MG TABLET PO SCH ×2 (08:21→19:54)
[2020-11-13] MEDS: OMEPRAZOLE 20 MG CAPSULE.DR PO SCH (08:21)
[2020-11-13] MEDS: VANCOMYCIN 1,600 MG in SODIUM CHLORIDE 0.9% 250 ML IV SCH (09:32)
[2020-11-13] MEDS: GUAIFENESIN/DM 200-20MG, 10ML UDC PO PRN (11:17)
[2020-11-13 13:52] VITALS: BP 125/75
[2020-11-13 18:56] VITALS: BP 149/80
[2020-11-13] MEDS: MELATONIN 5 MG TABLET PO PRN (19:54)
[2020-11-13] MEDS: LATANOPROST OPHTH 0.005%, 2.5ML EACHEYE SCH (19:55)
[2020-11-14 01:13] VITALS: BP 150/77
[2020-11-14 06:03] LABS: BASOPHILS % (AUTO) 0 % (0-1); EOSINOPHILS % (AUTO) 1 % (1-7); LYMPHOCYTES % (AUTO) 8 % (22-44); MEAN CORPUSCULAR HEMOGLOBIN 30.6 pg (27.5-34.5); MEAN CORPUSCULAR HGB CONC 32.9 g/dL (33.2-36.2); MEAN PLATELET VOLUME 8.5 fL (7.4-10.4); MONOCYTES % (AUTO) 11 % (2-9); NEUTROPHILS % (AUTO) 81 % (42-75); PLATELET COUNT 190 x10^3/uL (130-400); RED BLOOD COUNT 3.47 x10^6/uL (4.38-5.82); RED CELL DISTRIBUTION WIDTH 15.9 % (9.4-14.8)
[2020-11-14 06:05] LABS: ANION GAP 5 mmol/L (5-15); CALCIUM 7.8 mg/dL (8.5-10.1); CHLORIDE 105 mmol/L (98-107); CREATININE 1.08 mg/dL (0.7-1.3)
[2020-11-14] MEDS: ALBUTEROL-IPRATROPIUM MDI INH INH SCH ×4 (06:07→20:23)
[2020-11-14] MEDS: CEFEPIME 1 GM in DEXTROSE 5% 50 ML IV SCH ×2 (06:07→18:46)
[2020-11-14 07:09] VITALS: BP 141/78
[2020-11-14] MEDS: LISINOPRIL 20 MG TABLET PO SCH ×2 (10:01→20:23)
[2020-11-14] MEDS: DRONABINOL 5 MG CAPSULE PO SCH ×2 (10:01→20:23)
[2020-11-14] MEDS: OMEPRAZOLE 20 MG CAPSULE.DR PO SCH (10:01)
[2020-11-14] MEDS: BUPROPION SR 150 MG TABLET PO SCH ×2 (10:01→20:23)
[2020-11-14] MEDS: AMIODARONE 200 MG TABLET PO SCH ×2 (10:02→20:23)
[2020-11-14] MEDS: APIXABAN 5 MG TABLET PO SCH ×2 (10:02→20:23)
[2020-11-14] MEDS: SENNA/DOCUSATE TABLET PO SCH (10:02)
[2020-11-14] MEDS: METOPROLOL SUCCINATE 25 MG TAB.ER.24H PO SCH ×2 (10:02→20:22)
[2020-11-14] MEDS: GUAIFENESIN/DM 200-20MG, 10ML UDC PO PRN (12:16)
[2020-11-14 13:43] VITALS: BP 82/58
[2020-11-14 19:43] VITALS: BP 120/79
[2020-11-14] MEDS: VANCOMYCIN 1,600 MG in SODIUM CHLORIDE 0.9% 250 ML IV SCH (20:22)
[2020-11-14] MEDS: LATANOPROST OPHTH 0.005%, 2.5ML EACHEYE SCH (20:23)
[2020-11-14] MEDS: MELATONIN 5 MG TABLET PO PRN (20:23)
[2020-11-15 00:39] VITALS: BP 125/74
[2020-11-15] MEDS: ALBUTEROL-IPRATROPIUM MDI INH INH SCH ×4 (05:54→20:45)
[2020-11-15] MEDS: CEFEPIME 1 GM in DEXTROSE 5% 50 ML IV SCH ×2 (05:54→17:19)
[2020-11-15] MEDS: SENNA/DOCUSATE TABLET PO SCH (07:11)
[2020-11-15] MEDS: METOPROLOL SUCCINATE 25 MG TAB.ER.24H PO SCH ×2 (07:49→20:46)
[2020-11-15] MEDS: AMIODARONE 200 MG TABLET PO SCH ×2 (07:50→20:45)
[2020-11-15] MEDS: DRONABINOL 5 MG CAPSULE PO SCH ×2 (07:50→20:45)
[2020-11-15] MEDS: OMEPRAZOLE 20 MG CAPSULE.DR PO SCH (07:51)
[2020-11-15] MEDS: APIXABAN 5 MG TABLET PO SCH ×2 (07:51→20:45)
[2020-11-15] MEDS: BUPROPION SR 150 MG TABLET PO SCH ×2 (07:51→20:46)
[2020-11-15] MEDS: LISINOPRIL 20 MG TABLET PO SCH ×2 (07:51→20:46)
[2020-11-15 07:52] VITALS: BP 148/78
[2020-11-15 13:44] VITALS: BP 126/78
[2020-11-15 20:30] VITALS: BP 137/75
[2020-11-15] MEDS: LATANOPROST OPHTH 0.005%, 2.5ML EACHEYE SCH (20:44)
[2020-11-16 00:45] VITALS: BP 122/70
[2020-11-16] MEDS: CEFEPIME 1 GM in DEXTROSE 5% 50 ML IV SCH (05:18)
[2020-11-16] MEDS: ALBUTEROL-IPRATROPIUM MDI INH INH SCH ×2 (06:08→11:19)
[2020-11-16 06:43] VITALS: BP 133/81
[2020-11-16] MEDS: SENNA/DOCUSATE TABLET PO SCH (09:00)
[2020-11-16] MEDS: BUPROPION SR 150 MG TABLET PO SCH (09:11)
[2020-11-16] MEDS: VANCOMYCIN 1,600 MG in SODIUM CHLORIDE 0.9% 250 ML IV SCH (09:11)
[2020-11-16] MEDS: METOPROLOL SUCCINATE 25 MG TAB.ER.24H PO SCH (09:12)
[2020-11-16] MEDS: OMEPRAZOLE 20 MG CAPSULE.DR PO SCH (09:12)
[2020-11-16] MEDS: DRONABINOL 5 MG CAPSULE PO SCH (09:12)
[2020-11-16] MEDS: LISINOPRIL 20 MG TABLET PO SCH (09:12)
[2020-11-16] MEDS: APIXABAN 5 MG TABLET PO SCH (09:12)
[2020-11-16] MEDS: AMIODARONE 200 MG TABLET PO SCH (09:12)
[2020-11-16] MEDS ORDERED: GUAI5SYR PO (12:25)
[2020-11-16] MEDS ORDERED: PRED10TA PO (12:25)
[2020-11-16] MEDS ORDERED: LISI-170 PO (12:25)
[2020-11-16 12:53] VITALS: BP 134/86
== END 2020-11-16 16:20 | disposition home health service (06) | DRG 871 ==
LOC: 4WST 23:54 → 5SO 11-01 12:45 → ICU 11-01 17:53 → 5SO 11-05 17:38
PROVIDERS: ADMIT Internal Medicine; ATTEND Family Medicine
PROC: 5A09357 Assistance with Respiratory Ventilation, Less than 24 Consecutive Hours, Continuous Positive Airway Pressure (ICD-10-PCS; 2020-11-01)
PROC: BB4BZZZ Ultrasonography of Pleura (ICD-10-PCS; 2020-11-02)
PROC: 0B998ZZ Drainage of Lingula Bronchus, Via Natural or Artificial Opening Endoscopic (ICD-10-PCS; 2020-11-02)
PROC: 0B9C8ZZ Drainage of Right Upper Lung Lobe, Via Natural or Artificial Opening Endoscopic (ICD-10-PCS; 2020-11-02)
PROC: 0B9D8ZZ Drainage of Right Middle Lung Lobe, Via Natural or Artificial Opening Endoscopic (ICD-10-PCS; 2020-11-02)
PROC: 5A09357 Assistance with Respiratory Ventilation, Less than 24 Consecutive Hours, Continuous Positive Airway Pressure (ICD-10-PCS; 2020-11-02)
PROC: 0W9930Z Drainage of Right Pleural Cavity with Drainage Device, Percutaneous Approach (ICD-10-PCS; principal; 2020-11-02 11:30)
PROC: 5A09357 Assistance with Respiratory Ventilation, Less than 24 Consecutive Hours, Continuous Positive Airway Pressure (ICD-10-PCS; 2020-11-03)
PROC: 0B998ZZ Drainage of Lingula Bronchus, Via Natural or Artificial Opening Endoscopic (ICD-10-PCS; 2020-11-05)
PROC: 0B9C8ZZ Drainage of Right Upper Lung Lobe, Via Natural or Artificial Opening Endoscopic (ICD-10-PCS; 2020-11-05)
PROC: 0B9D8ZZ Drainage of Right Middle Lung Lobe, Via Natural or Artificial Opening Endoscopic (ICD-10-PCS; 2020-11-05)
PROC: 0B9F8ZZ Drainage of Right Lower Lung Lobe, Via Natural or Artificial Opening Endoscopic (ICD-10-PCS; 2020-11-05)
DX: A41.9 Sepsis, unspecified organism (principal); J18.9 Pneumonia, unspecified organism; E43 Unspecified severe protein-calorie malnutrition; J96.21 Acute and chronic respiratory failure with hypoxia; I48.20 Chronic atrial fibrillation, unspecified; I50.32 Chronic diastolic (congestive) heart failure; D68.69 Other thrombophilia; I42.9 Cardiomyopathy, unspecified; J44.1 Chronic obstructive pulmonary disease with (acute) exacerbation; J98.19 Other pulmonary collapse; D63.8 Anemia in other chronic diseases classified elsewhere; E78.5 Hyperlipidemia, unspecified; F32.9 Major depressive disorder, single episode, unspecified; I11.0 Hypertensive heart disease with heart failure; I48.0 Paroxysmal atrial fibrillation; I73.9 Peripheral vascular disease, unspecified; K21.9 Gastro-esophageal reflux disease without esophagitis; Z20.822 Contact with and (suspected) exposure to COVID-19; I95.9 Hypotension, unspecified; Z79.01 Long term (current) use of anticoagulants; Z79.899 Other long term (current) drug therapy; Z82.49 Family history of ischemic heart disease and other diseases of the circulatory system; Z85.118 Personal history of other malignant neoplasm of bronchus and lung; Z92.21 Personal history of antineoplastic chemotherapy; Z92.3 Personal history of irradiation; Z82.5 Family history of asthma and other chronic lower respiratory diseases
CPT/HCPCS: 31622; 31624; 32557; 36415; 71045; 71250; 80048; 80053; 80202; 82042; 82150; 82945; 83615; 83735; 84100; 84145; 84157; 84484; 85025; 85520; 86140; 87040; 87070; 87075; 87077; 87186; 87205; 87635; 88112; 88305; 89051; 93005; 93306; 94640; 94660; 99152; 99153; G0378; J0692; J1644; J2250; J3010; J3370; J7060; P9047; Q0167; C1729; C1769; J0282; J0360; J2270; J2920; J7050; J7512